=== PATIENT | male | born 1930 | race Caucasian/White ===

== ENCOUNTER 2019-02-28 13:50 | Outpatient (RCR) | payer MEDICARE | END 2019-03-01 | LOC: PT 13:50 | PROVIDERS: ATTEND Emergency Medicine | DX: R26.81 Unsteadiness on feet (principal) ==

== ENCOUNTER 2019-03-09 14:00 | Outpatient (RCR) | payer MEDICARE | END 2019-03-31 | LOC: PT 14:00 | PROVIDERS: ATTEND Emergency Medicine | DX: G62.9 Polyneuropathy, unspecified (principal); R26.81 Unsteadiness on feet; M62.81 Muscle weakness (generalized) | CPT/HCPCS: 97139 ==